=== PATIENT | female | born 2000 | race Caucasian/White ===

== ENCOUNTER 2022-11-16 16:16 | Emergency (ER) | payer MEDICAID ==
--- NOTE | 2022-11-16 17:05 | ERPHSYRPT ---
- History of Present Illness Historian: patient, other (Mother) Exam Limitations: no limitations Patient Subjective Stated Complaint: Abdominal pain Triage Nursing Assessment: Patient ambulated back to ED and transferred self to bed. Patient A+O x3. Patient's skin pink, warm and dry. Patient complains of lower abdominal pain 8/10 constant sharp pain for 2 days. Patient also complains of nausea and diarrhea. Abdomen soft and round with BS X 4. Physician History: 22 yo wf w supra-pubic pain x 2 days. Pain is described as "tightness" and 8/10. Sitting makes the pain better, shile standing makes it worse. She has had nausea and diarrhea wo vomiting. Dysuria/hematuria/increased frequency/melena/hematochezia are all denied. Timing/Duration: day(s) (2 days) Activities at Onset: other (Working at [employer]) Quality: other (Tightness) Abdominal Pain Onset Location: suprapubic Pain Radiation: no radiation Modifying Factors: Improves With: other (Worse w standing, better w sitting) Associated Symptoms: denies symptoms Previous symptoms: no prior history Allergies/Adverse Reactions: No Known Drug Allergies Allergy (Unverified 11/16/22 16:33) Hx Influenza Vaccination/Date Given: No Hx Pneumococcal Vaccination/Date Given: No Immunizations Up to Date: Yes Travel Risk - International Travel Have you traveled outside of the country in past 3 weeks: No - Coronavirus Screening Are you exhibiting any of the following symptoms?: No Close contact with a COVID-19 positive Pt in past 14-21 Days: No - Vaccine Status Have you recieved a Covid-19 vaccination: No - Review of Systems Constitutional: No Symptoms Eyes: No Symptoms Ears, Nose, & Throat: No Symptoms Respiratory: No Symptoms Cardiac: No Symptoms Abdominal/Gastrointestinal: Abdominal Pain Genitourinary Symptoms: No Symptoms Musculoskeletal: No Symptoms Skin: No Symptoms Neurological: No Symptoms Psychological: No Symptoms Endocrine: No Symptoms Hematologic/Lymphatic: No Symptoms Immunological/Allergic: No Symptoms - Past Medical History Pertinent Past Medical History: No Neurological History: No Pertinent History ENT History: No Pertinent History Cardiac History: No Pertinent History Respiratory History: No Pertinent History Endocrine Medical History: No Pertinent History Musculoskeletal History: No Pertinent History GI Medical History: No Pertinent History History: No Pertinent History Psycho-Social History: No Pertinent History Female Reproductive Disorders: No Pertinent History - Past Surgical History Past Surgical History: No Neuro Surgical History: No Pertinent History Cardiac: No Pertinent History Respiratory: No Pertinent History Gastrointestinal: No Pertinent History Genitourinary: No Pertinent History Musculoskeletal: No Pertinent History Female Surgical History: No Pertinent History - Social History Smoking Status: Never smoker Exposure to second hand smoke: Yes Drug Use: marijuana Patient Lives Alone: No - Female History Hx Last Menstrual Period: last month Hx Now: No - Nursing Vital Signs Nursing Vital Signs: Initial Vital Signs Temperature 97.4 F 11/16/22 16:33 Pulse Rate 86 11/16/22 16:33 Respiratory Rate 18 11/16/22 16:33 Blood Pressure 135/92 11/16/22 16:33 O2 Sat by Pulse Oximetry 99 11/16/22 16:33 Pain Scale Pain Intensity 5 Mildly hypertensive - Physical Exam General Appearance: no apparent distress Eye Exam: PERRL/EOMI, eyes nml inspection Ears, Nose, Throat Exam: normal ENT inspection, TMs normal, pharynx normal, moist mucous membranes Neck Exam: normal inspection, non-tender, supple, full range of motion, No meningismus, No mass, No Brudzinski, No Kernig's Respiratory Exam: normal breath sounds, lungs clear, airway intact Cardiovascular Exam: regular rate/rhythm, normal heart sounds, normal peripheral pulses, capillary refill <2 sec, No murmur Gastrointestinal/Abdomen Exam: soft, normal bowel sounds, tenderness (Mild supra-pubic TTP wo guarding or rebound) Back Exam: normal inspection, normal range of motion Extremity Exam: normal inspection, normal range of motion Neurologic Exam: alert, oriented x 3, cooperative, english as a second language instructor II-XII nml as tested, normal mood/affect, sensation nml, No motor deficits, No sensory deficit Skin Exam: normal color, warm, dry Lymphatic Exam: No adenopathy SpO2 Interpretation: normal SpO2: 99 O2 Delivery: Room Air - Course Nursing assessment & vital signs reviewed: Yes - CT Exams Abdomen/Pelvis CT Interpretation: Discussed w/radiologist (CT ab-pelvis wo-normal appy/nothing acute) Ordered Tests: Active Orders 24 hr Category Date Time Status IV Insertion STAT Care 11/16/22 17:14 Active ABDOMEN AND PELVIS W/0 CONTRAS [CT] Stat Exams 11/16/22 19:28 Taken AMYLASE Stat Lab 11/16/22 17:16 Completed CBC W DIFF Stat Lab 11/16/22 17:16 Completed CMP Stat Lab 11/16/22 17:16 Completed CULTURE,URINE Stat Lab 11/16/22 17:58 Received HCG QUALITATIVE,SERUM Stat Lab 11/16/22 17:16 Completed LIPASE Stat Lab 11/16/22 17:16 Completed UA W/RFX UR CULTURE Stat Lab 11/16/22 17:58 Completed Medication Summary Discontinued Medications Generic Name Dose Route Start Last Admin Trade Name Fide PRN Reason Stop Dose Admin Ceftriaxone Sodium/Dextrose 1 g in 50 mls @ 100 mls/hr 11/16/22 21:25 11/16/22 21:54 Rocephin 1 Gm-D5w 50 Ml Bag IV 11/16/22 21:54 100 ml/hr STAT STA 100 mls/hr Administration Ceftriaxone Sodium/Dextrose Confirm 11/16/22 21:38 Rocephin 1 Gm-D5w 50 Ml Bag Administered 11/16/22 21:39 Dose 1 g in 50 mls @ ud IV .STK-MED ONE Ketorolac Tromethamine 15 mg 11/16/22 19:30 11/16/22 19:32 Ketorolac Tromethamine 30 Mg/Ml Inj IV 11/16/22 19:31 15 mg STAT ONE Administration Ketorolac Tromethamine Confirm 11/16/22 19:30 Ketorolac Tromethamine 30 Mg/Ml Inj Administered 11/16/22 19:31 Dose 30 mg .ROUTE .STK-MED ONE Lab/Rad Data: Laboratory Result Diagrams 11/16/22 17:16 11/16/22 17:16 Laboratory Results 11/16/22 11/16/22 11/16/22 Range/Units 17:58 17:16 17:16 WBC (4.0-10.5) x10^3/uL RBC (4.1-5.4) x10^6/uL Hgb (12.0-16.0) g/dL Hct (35-47) % MCV (78-100) fL MCH (26-32) pg MCHC (32-36) g/dL RDW (11.5-14.0) % Plt Count (150-450) x10^3/uL MPV (7.5-11.0) fL Gran % (36.0-66.0) % Immature Gran % (Auto) (0.00-0.4) % Nucleat RBC Rel Count (0.00-0.1) % Eos # (Auto) (0-0.5) x10^3/uL Immature Gran # (Auto) (0.00-0.03) x10^3u/L Absolute Lymphs (auto) (1.0-4.6) x10^3/uL Absolute Monos (auto) (0.0-1.3) x10^3/uL Absolute Nucleated RBC (0.00-0.01) x10^3u/L Lymphocytes % (24.0-44.0) % Monocytes % (0.0-12.0) % Eosinophils % (0.00-5.0) % Basophils % (0.0-0.4) % Absolute Granulocytes (1.4-6.9) x10^3/uL Basophils # (0-0.4) x10^3/uL Sodium 137 (137-145) mmol/L Potassium 3.7 (3.5-5.1) mmol/L Chloride 105 (98-107) mmol/L Carbon Dioxide 23 (22-30) mmol/L Anion Gap 12.0 (5-15) MEQ/L BUN 12 (7-17) mg/dL Creatinine 0.77 (0.52-1.04) mg/dL Estimated GFR > 60.0 ML/MIN Glucose 104 (74-106) mg/dL Calcium 9.4 (8.4-10.2) mg/dL Total Bilirubin 0.60 (0.2-1.3) mg/dL AST 49 H (14-36) U/L ALT 19 (0-35) U/L Alkaline Phosphatase 100 (38-126) U/L Serum Total Protein 8.6 H (6.3-8.2) g/dL Albumin 5.0 (3.5-5.0) g/dL Amylase 61 (30-110) U/L Lipase 178 (23-300) U/L Serum , Qual NEGATIVE (Negative) Urine Color Yellow (Yellow) Urine Appearance Cloudy A (Clear) Urine pH 6.5 (4.6-8.0) Ur Specific [place] 1.020 (1.005-1.030) Urine Protein Negative (Negative) Urine Glucose (UA) Negative (Negative) mg/dL Urine Ketones 15 A (Negative) Urine Blood Negative (Negative) Urine Nitrite Negative (Negative) Urine Bilirubin Negative (Negative) Urine Urobilinogen 0.2 (0.2) mg/dL Ur Leukocyte Esterase Moderate A (Negative) U Hyaline Cast (Auto) NONE SEEN (0-2) /LPF Urine Microscopic RBC 0-2 (0-5) /HPF Urine Microscopic WBC 21-50 A (0-5) /HPF Ur Epithelial Cells Moderate A (None Seen) /HPF Urine Bacteria Few A (None Seen) /HPF Urine Culture Reflexed YES (NO) 11/16/22 Range/Units 17:16 WBC 14.0 H (4.0-10.5) x10^3/uL RBC 5.09 (4.1-5.4) x10^6/uL Hgb 15.0 (12.0-16.0) g/dL Hct 44.0 (35-47) % MCV 86.4 (78-100) fL MCH 29.5 (26-32) pg MCHC 34.1 (32-36) g/dL RDW 11.6 (11.5-14.0) % Plt Count 327 (150-450) x10^3/uL MPV 9.0 (7.5-11.0) fL Gran % 81.7 H (36.0-66.0) % Immature Gran % (Auto) 0.5 H (0.00-0.4) % Nucleat RBC Rel Count 0.0 (0.00-0.1) % Eos # (Auto) 0.07 (0-0.5) x10^3/uL Immature Gran # (Auto) 0.07 H (0.00-0.03) x10^3u/L Absolute Lymphs (auto) 1.66 (1.0-4.6) x10^3/uL Absolute Monos (auto) 0.72 (0.0-1.3) x10^3/uL Absolute Nucleated RBC 0.00 (0.00-0.01) x10^3u/L Lymphocytes % 11.9 L (24.0-44.0) % Monocytes % 5.2 (0.0-12.0) % Eosinophils % 0.5 (0.00-5.0) % Basophils % 0.2 (0.0-0.4) % Absolute Granulocytes 11.43 H (1.4-6.9) x10^3/uL Basophils # 0.03 (0-0.4) x10^3/uL Sodium (137-145) mmol/L Potassium (3.5-5.1) mmol/L Chloride (98-107) mmol/L Carbon Dioxide (22-30) mmol/L Anion Gap (5-15) MEQ/L BUN (7-17) mg/dL Creatinine (0.52-1.04) mg/dL Estimated GFR ML/MIN Glucose (74-106) mg/dL Calcium (8.4-10.2) mg/dL Total Bilirubin (0.2-1.3) mg/dL AST (14-36) U/L ALT (0-35) U/L Alkaline Phosphatase (38-126) U/L Serum Total Protein (6.3-8.2) g/dL Albumin (3.5-5.0) g/dL Amylase (30-110) U/L Lipase (23-300) U/L Serum , Qual (Negative) Urine Color (Yellow) Urine Appearance (Clear) Urine pH (4.6-8.0) Ur Specific [place] (1.005-1.030) Urine Protein (Negative) Urine Glucose (UA) (Negative) mg/dL Urine Ketones (Negative) Urine Blood (Negative) Urine Nitrite (Negative) Urine Bilirubin (Negative) Urine Urobilinogen (0.2) mg/dL Ur Leukocyte Esterase (Negative) U Hyaline Cast (Auto) (0-2) /LPF Urine Microscopic RBC (0-5) /HPF Urine Microscopic WBC (0-5) /HPF Ur Epithelial Cells (None Seen) /HPF Urine Bacteria (None Seen) /HPF Urine Culture Reflexed (NO) - Progress Progress: improved Progress Note: 11/16/22 21:26 Nursing note and vital signs reviewed All labs and CT result reviewed and shared w pt No food or housing insecurities noted Pain improved w 15mg IV Toradol 1gm IV Rocephin Counseled pt/family regarding: lab results, diagnosis, need for follow-up, rad results - Departure Departure Disposition: Home Clinical Impression: UTI (urinary tract infection) Condition: Stable Critical Care Time: No Referrals: RAMSAY,COURTNEY, HARDWARE TRAINER [Primary Care Provider] - Follow up/PCP as directed Instructions: Urinary Tract Infection, Adult (DC), Severe Abdominal Pain, Adult (DC) Additional Instructions: Follow up with your family MD in 1-2 days Fluids Start Bactrim in the morning Return to ER for increasing pain or temperature greater than 100.5 Prescriptions: Smz/Tmp Ds Tablet [Bactrim Ds Tablet] 1 tab PO Q12H 5 Days #10 tablet
[2022-11-16 17:47] LABS: Absolute Neutrophil Ct (ANC) 11.43 x10^3/uL (1.4-6.9); BASOPHIL % 0.2 % (0.0-0.4); Basophil (Absolute #) 0.03 x10^3/uL (0-0.4); Eosinophil % 0.5 % (0.00-5.0); Eosinophil (Absolute #) 0.07 x10^3/uL (0-0.5); IMMATURE GRAN # 0.07 x10^3u/L (0.00-0.03); IMMATURE GRAN % 0.5 % (0.00-0.4); Lymphocyte (Absolute #) 1.66 x10^3/uL (1.0-4.6); Lymphocytes % 11.9 % (24.0-44.0); Mean Cell Volume 86.4 fL (78-100); Mean Corpuscular Hemoglobin 29.5 pg (26-32); Mean Corpuscular Hgb Concent. 34.1 g/dL (32-36); Monocyte (Absolute #) 0.72 x10^3/uL (0.0-1.3); Monocytes % 5.2 % (0.0-12.0); Neutrophil % 81.7 % (36.0-66.0); Platelet Count 327 x10^3/uL (150-450); Red Blood Count 5.09 x10^6/uL (4.1-5.4); Red Cell Distribution Width 11.6 % (11.5-14.0)
[2022-11-16 18:00] LABS: ALKALINE PHOSPHATASE 100 U/L (38-126); AMYLASE 61 U/L (30-110); BLOOD UREA NITROGEN 12 mg/dL (7-17); CHLORIDE 105 mmol/L (98-107); Calcium 9.4 mg/dL (8.4-10.2); Carbon Dioxide 23 mmol/L (22-30); Creatinine 1 0.77 mg/dL (0.52-1.04); EST GLOMERULAR FILTRATION RATE > 60.0 ML/MIN; Glucose 104 mg/dL (74-106); LIPASE 178 U/L (23-300); Potassium 3.7 mmol/L (3.5-5.1); SGOT/AST 49 U/L (14-36); SGPT/ALT 19 U/L (0-35); SODIUM 137 mmol/L (137-145); Total Protein 8.6 g/dL (6.3-8.2)
[2022-11-16 18:27] LABS: Appearance Cloudy (Clear); Bacteria Few /HPF (None Seen); Bilirubin Negative (Negative); Blood Negative (Negative); Epithelial Cells Moderate /HPF (None Seen); Glucose, Urine Negative (Negative); Hyaline Casts NONE SEEN /LPF (0-2); Ketones 15 (Negative); Leukocyte Esterase Moderate (Negative); Nitrite Negative (Negative); Ph 6.5 (4.6-8.0); Protein,Urine Dip Negative (Negative); RBC 0-2 /HPF (0-5); Urobilinogen 0.2 mg/dL (0.2); WBC 21-50 /HPF (0-5)
[2022-11-16 19:21] LABS: ADD URINE CULTURE? YES (NO)
[2022-11-16] MEDS ORDERED: TORAdol 30 mg Injection IV ONE (19:30)
[2022-11-16] MEDS ORDERED: TORAdol 30 mg Injection ONE (19:30)
[2022-11-16 21:10] VITALS: O2SAT 99
[2022-11-16] MEDS ORDERED: ROCEPHIN 1 Gm-D5w 50 ml Bag** 1 G/50 ML IVPB IV STA (21:25)
[2022-11-16] MEDS ORDERED: ROCEPHIN 1 Gm-D5w 50 ml Bag** 1 G/50 ML IVPB IV ONE (21:38)
[2022-11-16 22:29] VITALS: BP 118/86; PULSE 77
--- NOTE | 2022-11-17 08:38 | XRAY ---
Indication: Pain, nausea, and diarrhea. Multiple contiguous axial images obtained through the abdomen and pelvis without contrast. Comparison: None Lung bases clear of infiltrate/infusion. Heart not enlarged. Noncontrasted stomach and bowel loops appear nonobstructed with normal appendix. Tiny cul-de-sac fluid presumed physiologic from rupture/leaking cyst. No free air. Remaining liver, gallbladder, pancreas, spleen, adrenal glands, kidneys, ureters, bladder, uterus, and aorta are unremarkable for noncontrast exam. Osseous structures intact. No ventral or inguinal hernias. Impression: 1. Tiny physiologic cul-de-sac fluid. 2. Remaining CT abdomen/pelvis without contrast exam is negative.
== END 2022-11-16 22:35 | disposition home or self-care (01) ==
LOC: ED 16:16
DX: N39.0 Urinary tract infection, site not specified (principal); R10.2 Pelvic and perineal pain; R11.0 Nausea; R19.7 Diarrhea, unspecified; Z28.310 Unvaccinated for COVID-19
CPT/HCPCS: 36000; 36415; 74176; 80053; 81001; 82150; 83690; 84703; 85025; 87086; 96365; 96374; 99284; J0696; J1885

== ENCOUNTER 2024-04-24 09:02 | Emergency (ER) | payer MEDICAID ==
[2024-04-24 09:33] VITALS: TEMP 97
[2024-04-24] MEDS ORDERED: Zofran 4 MG/2 ML VIAL ONE (09:36)
[2024-04-24] MEDS ORDERED: TORAdol 30 mg Injection ONE (09:36)
[2024-04-24] MEDS ORDERED: Sodium Chloride 0.9% 1000 ML 1,000 ML ONE (09:37)
[2024-04-24] MEDS ORDERED: MORPHINE SULFATE 2 MG INJ ONE (09:37)
[2024-04-24] MEDS: Sodium Chloride 0.9% 1000 ML 1,000 ML IV STA (09:43)
[2024-04-24] MEDS: MORPHINE SULFATE 2 MG INJ IV ONE (09:43)
[2024-04-24] MEDS: Zofran 4 MG/2 ML VIAL IV ONE (09:45)
[2024-04-24] MEDS: TORAdol 30 mg Injection IV ONE (09:45)
--- NOTE | 2024-04-24 09:54 | ERPHSYRPT ---
- History of Present Illness Time Seen by Provider: 04/24/24 09:35 Historian: patient, family Exam Limitations: no limitations Patient Subjective Stated Complaint: pt here for lower back pain that radiates down legs, chills and nausea Triage Nursing Assessment: pt alert, resp easy, skin w/d/p. walked in, moves all ext well, abd soft Physician History: This is a 23-year-old white female patient of nurse practitioner Sonido who presents with bilateral flank and lower back pain that began last evening. She has associated chills and nausea without vomiting. She has had no diarrhea symptoms. She denies headache. She denies neck pain. She denies light sensitivity. She has no abdominal pain. She denies chest pain and she denies shortness of breath. She does not have a cough. She has no known exposure to individuals with similar symptoms that she is having. She has no known drug allergies and she takes no medications chronically. Timing/Duration: yesterday Activities at Onset: none Quality: sharpness Abdominal Pain Onset Location: flank (Bilateral flank and bilateral lower back) Pain Radiation: flank (Bilateral), back (Bilateral) Severity of Pain-Max: moderate Severity of Pain-Current: moderate Modifying Factors: Improves With: other (Nausea) Associated Symptoms: back, fever/chills, loss of appetite, nausea, No chest pain, No headache, No neck pain, No shortness of breath, No vomiting Previous symptoms: no prior history, no recent treatment Allergies/Adverse Reactions: No Known Drug Allergies Allergy (Verified 04/24/24 09:10) Hx Tetanus, Diphtheria Vaccination/Date Given: No Hx Influenza Vaccination/Date Given: No Hx Pneumococcal Vaccination/Date Given: No Immunizations Up to Date: Yes Travel Risk - International Travel Have you traveled outside of the country in past 3 weeks: No - Emerging Infectious Disease Are you exhibiting symptoms associated with any current EIDs: No Symptoms: Fever (Subjective at home), Headaches/Body Aches/ - Review of Systems Constitutional: No Symptoms Eyes: No Symptoms Ears, Nose, & Throat: No Symptoms Respiratory: No Symptoms Cardiac: No Symptoms Abdominal/Gastrointestinal: No Symptoms Genitourinary Symptoms: No Symptoms Musculoskeletal: No Symptoms Skin: No Symptoms Neurological: No Symptoms Psychological: No Symptoms Endocrine: No Symptoms Hematologic/Lymphatic: No Symptoms Immunological/Allergic: No Symptoms All Other Systems: Reviewed and Negative - Past Medical History Pertinent Past Medical History: No Neurological History: No Pertinent History ENT History: No Pertinent History Cardiac History: No Pertinent History Respiratory History: No Pertinent History Endocrine Medical History: No Pertinent History Musculoskeletal History: No Pertinent History GI Medical History: No Pertinent History History: No Pertinent History Psycho-Social History: No Pertinent History Female Reproductive Disorders: No Pertinent History - Past Surgical History Past Surgical History: Yes Neuro Surgical History: No Pertinent History Cardiac: No Pertinent History Respiratory: No Pertinent History Gastrointestinal: No Pertinent History Genitourinary: No Pertinent History Musculoskeletal: No Pertinent History Female Surgical History: No Pertinent History - Female History Hx Last Menstrual Period: last month Hx Now: No - Social History Smoking Status: Never smoker Exposure to second hand smoke: No Drug Use: none Patient Lives Alone: No - Social Determinants of Health Will the patient participate in the screening: Yes Do you worry about a steady place to live?: No Do you have any problems with any of the following?: No known problems In the past 12 months,have you had to go without utilities?: No Transportation Issues: No Has anyone in your support network made you feel unsafe?: No Have you or anyone in your house had to go without enough: No - Nursing Vital Signs Nursing Vital Signs: Initial Vital Signs Pulse Rate 122 H 04/24/24 09:11 Respiratory Rate 26 H 04/24/24 09:11 Blood Pressure 123/75 04/24/24 09:11 O2 Sat by Pulse Oximetry 100 04/24/24 09:11 Pain Scale Pain Intensity [Back] 8 Pain Intensity 4 - Physical Exam General Appearance: no apparent distress, alert Eye Exam: PERRL/EOMI, eyes nml inspection Ears, Nose, Throat Exam: normal ENT inspection, moist mucous membranes Neck Exam: normal inspection, non-tender, supple, full range of motion Respiratory Exam: normal breath sounds, lungs clear, No chest tenderness, No respiratory distress Cardiovascular Exam: regular rate/rhythm, normal heart sounds, normal peripheral pulses Gastrointestinal/Abdomen Exam: soft, normal bowel sounds, No tenderness Pelvic Exam: not done Rectal Exam: not done Back Exam: normal inspection, normal range of motion (Mild bilateral), CVA tenderness, No vertebral tenderness Extremity Exam: normal inspection, normal range of motion, pelvis stable Neurologic Exam: alert, oriented x 3, cooperative, 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 as tested, normal mood/affect, nml cerebellar function, nml station & gait, sensation nml Skin Exam: normal color, warm, dry Lymphatic Exam: No adenopathy SpO2 Interpretation: normal SpO2: 98 O2 Delivery: Room Air - Course Nursing assessment & vital signs reviewed: Yes Ordered Tests: Active Orders 24 hr Category Date Time Status IV Insertion STAT Care 04/24/24 09:30 Active ABDOMEN AND PELVIS W/0 CONTRAS [CT] Stat Exams 04/24/24 09:31 Completed AMYLASE Stat Lab 04/24/24 09:00 Completed CBC W DIFF Stat Lab 04/24/24 09:00 Completed CMP Stat Lab 04/24/24 09:00 Completed HCG QUALITATIVE, SERUM Stat Lab 04/24/24 09:00 Completed LIPASE Stat Lab 04/24/24 09:00 Completed UA W/RFX UR CULTURE Stat Lab 04/24/24 11:10 Completed Medication Summary Discontinued Medications Generic Name Dose Route Start Last Admin Trade Name Freq PRN Reason Stop Dose Admin Sodium Chloride 1,000 mls @ 999 mls/hr 04/24/24 09:30 04/24/24 10:53 Sodium Chloride 0.9% 1000 Ml IV 04/24/24 10:30 Infused .Q1H1M STA Infusion Sodium Chloride Confirm 04/24/24 09:37 Sodium Chloride 0.9% 1000 Ml Administered 04/24/24 09:38 Dose 1,000 mls @ ud .ROUTE .STK-MED ONE Ketorolac Tromethamine 30 mg 04/24/24 09:30 04/24/24 09:45 Ketorolac Tromethamine 30 Mg/Ml Inj IV 04/24/24 09:31 30 mg STAT ONE Administration Ketorolac Tromethamine Confirm 04/24/24 09:36 Ketorolac Tromethamine 30 Mg/Ml Inj Administered 04/24/24 09:37 Dose 30 mg .ROUTE .STK-MED ONE Morphine Sulfate 2 mg 04/24/24 09:30 04/24/24 09:43 Morphine Sulfate 2 Mg/Ml Inj IV 04/24/24 09:31 2 mg STAT ONE Administration Morphine Sulfate Confirm 04/24/24 09:37 Morphine Sulfate 2 Mg/Ml Inj Administered 04/24/24 09:38 Dose 2 mg .ROUTE .STK-MED ONE Ondansetron HCl 4 mg 04/24/24 09:30 04/24/24 09:45 Ondansetron Hcl 4 Mg/2 Ml Vial IV 04/24/24 09:31 4 mg STAT ONE Administration Ondansetron HCl Confirm 04/24/24 09:36 Ondansetron Hcl 4 Mg/2 Ml Vial Administered 04/24/24 09:37 Dose 4 mg .ROUTE .STK-MED ONE Lab/Rad Data: Laboratory Result Diagrams 04/24/24 09:00 04/24/24 09:00 Laboratory Results 04/24/24 04/24/24 04/24/24 Range/Units 11:10 09:58 09:00 WBC (3.98-10.04) x10^3/uL RBC (3.93-5.22) x10^6/uL Hgb (11.2-15.7) g/dL Hct (34.1-44.9) % MCV (79.4-94.8) fL MCH (25.6-32.2) pg MCHC (32.2-35.5) g/dL RDW (11.7-14.4) % Plt Count (182-369) x10^3/uL MPV (9.4-12.3) fL Gran % (34.0-71.1) % Immature Gran % (Auto) (0.001-0.429) % Nucleat RBC Rel Count (0.00-0.2) % Eos # (Auto) (0.04-0.36) x10^3/uL Immature Gran # (Auto) (0.001-0.031) x10^3u/L Absolute Lymphs (auto) (1.18-3.74) x10^3/uL Absolute Monos (auto) (0.24-0.86) x10^3/uL Absolute Nucleated RBC (0.00-0.012) x10^3u/L Lymphocytes % (19.3-51.7) % Monocytes % (4.7-12.5) % Eosinophils % (0.7-5.8) % Basophils % (0.1-1.2) % Absolute Granulocytes (1.56-6.13) x10^3/uL Basophils # (0.01-0.08) x10^3/uL Sodium (135-145) mmol/L Potassium (3.5-5.1) mmol/L Chloride (98-107) mmol/L Carbon Dioxide (22-30) mmol/L Anion Gap (5-15) MEQ/L BUN (7-17) mg/dL Creatinine (0.52-1.04) mg/dL Estimated GFR ML/MIN Glucose (74-106) mg/dL Calcium (8.4-10.2) mg/dL Total Bilirubin (0.2-1.3) mg/dL AST (14-36) U/L ALT (0-35) U/L Alkaline Phosphatase (38-126) U/L Serum Total Protein (6.3-8.2) g/dL Albumin (3.5-5.0) g/dL Amylase (30-110) U/L Lipase (23-300) U/L Serum HCG, Qual NEGATIVE (NEGATIVE) Urine Color Yellow (Yellow) Urine Appearance Clear (Clear) Urine pH 8.0 (4.6-8.0) Ur Specific [place] <=1.005 (1.005-1.030) Urine Protein Negative (Negative) Urine Glucose (UA) Negative (Negative) mg/dL Urine Ketones Negative (Negative) Urine Blood Negative (Negative) Urine Nitrite Negative (Negative) Urine Bilirubin Negative (Negative) Urine Urobilinogen 0.2 (0.2) mg/dL Ur Leukocyte Esterase Trace A (Negative) U Hyaline Cast (Auto) NONE SEEN (0-2) /LPF Urine Microscopic RBC 0-2 (0-5) /HPF Urine Microscopic WBC 0-2 (0-5) /HPF Ur Epithelial Cells Rare (None Seen) /HPF Urine Bacteria None Seen (None Seen) /HPF Urine Culture Reflexed NO (NO) Influenza Type A Ag NEGATIVE (NEGATIVE) Influenza Type B Ag NEGATIVE (NEGATIVE) RSV (PCR) NEGATIVE (NEGATIVE) SARS-CoV-2 (PCR) POSITIVE A (NEGATIVE) Slides for Path Review 04/24/24 04/24/24 Range/Units 09:00 09:00 WBC 8.1 (3.98-10.04) x10^3/uL RBC 4.45 (3.93-5.22) x10^6/uL Hgb 13.0 (11.2-15.7) g/dL Hct 37.0 (34.1-44.9) % MCV 83.1 (79.4-94.8) fL MCH 29.2 (25.6-32.2) pg MCHC 35.1 (32.2-35.5) g/dL RDW 11.9 (11.7-14.4) % Plt Count 251 (182-369) x10^3/uL MPV 8.8 L (9.4-12.3) fL Gran % 86.3 H (34.0-71.1) % Immature Gran % (Auto) 0.5 H (0.001-0.429) % Nucleat RBC Rel Count 0.0 (0.00-0.2) % Eos # (Auto) 0.09 (0.04-0.36) x10^3/uL Immature Gran # (Auto) 0.04 H (0.001-0.031) x10^3u/L Absolute Lymphs (auto) 0.34 L (1.18-3.74) x10^3/uL Absolute Monos (auto) 0.61 (0.24-0.86) x10^3/uL Absolute Nucleated RBC 0.00 (0.00-0.012) x10^3u/L Lymphocytes % 4.2 L (19.3-51.7) % Monocytes % 7.5 (4.7-12.5) % Eosinophils % 1.1 (0.7-5.8) % Basophils % 0.4 (0.1-1.2) % Absolute Granulocytes 7.02 H (1.56-6.13) x10^3/uL Basophils # 0.03 (0.01-0.08) x10^3/uL Sodium 135 (135-145) mmol/L Potassium 4.2 (3.5-5.1) mmol/L Chloride 105 (98-107) mmol/L Carbon Dioxide 21 L (22-30) mmol/L Anion Gap 12.9 (5-15) MEQ/L BUN 10 (7-17) mg/dL Creatinine 0.81 (0.52-1.04) mg/dL Estimated GFR 105.2 ML/MIN Glucose 142 H (74-106) mg/dL Calcium 9.4 (8.4-10.2) mg/dL Total Bilirubin 0.90 (0.2-1.3) mg/dL AST 34 (14-36) U/L ALT 22 (0-35) U/L Alkaline Phosphatase 65 (38-126) U/L Serum Total Protein 7.9 (6.3-8.2) g/dL Albumin 4.4 (3.5-5.0) g/dL Amylase 65 (30-110) U/L Lipase 135 (23-300) U/L Serum HCG, Qual (NEGATIVE) Urine Color (Yellow) Urine Appearance (Clear) Urine pH (4.6-8.0) Ur Specific [place] (1.005-1.030) Urine Protein (Negative) Urine Glucose (UA) (Negative) mg/dL Urine Ketones (Negative) Urine Blood (Negative) Urine Nitrite (Negative) Urine Bilirubin (Negative) Urine Urobilinogen (0.2) mg/dL Ur Leukocyte Esterase (Negative) U Hyaline Cast (Auto) (0-2) /LPF Urine Microscopic RBC (0-5) /HPF Urine Microscopic WBC (0-5) /HPF Ur Epithelial Cells (None Seen) /HPF Urine Bacteria (None Seen) /HPF Urine Culture Reflexed (NO) Influenza Type A Ag (NEGATIVE) Influenza Type B Ag (NEGATIVE) RSV (PCR) (NEGATIVE) SARS-CoV-2 (PCR) (NEGATIVE) Slides for Path Review YES - Progress Progress: improved, pain not gone completely, re-examined Progress Note: 04/24/24 09:56 My medical decision making and the assignment of moderate complexity to this patient's medical issue today is based on review of the patient's past medical history, review the patient's medication list, review of patient drug allergy list, history present illness and physical findings on examination. The workup in this patient includes placement of intravenous line, infusion of normal saline solution, infusion of Toradol, infusion of morphine, infusion of Zofran, urinalysis, serum hCG, CBC, CMP, amylase, lipase, CT scan of the abdomen pelvis without contrast. The differential diagnosis includes but is not limited to pancreatitis, pyelonephritis, urinary tract infection, ureterolithiasis, back muscle skeletal pain 04/24/24 11:36 I interpreted the patient's laboratory data results. The patient is positive for COVID-19 infection. There are no other acute, emergent findings. CT scan of the abdomen pelvis was interpreted by the radiologist and I reviewed the impression. The impression is negative renal calculi. Negative obstructive uropathy. Tiny physiologic cul-de-sac fluid. No new or acute findings. Counseled pt/family regarding: lab results, diagnosis, rad results Medical Desision Making - Independent Historian Additional History obtained from: Mother - Diagnostic Testing Diagnostic test were ordered, analyzed, and reviewed by me: Yes Radiological Interpretation: Reviewed by me, Teleradiologist Report - Risk of complications Minimal Risk: Minimal risk of morbidity - Departure Departure Disposition: Home Clinical Impression: COVID-19 virus infection Condition: Stable Critical Care Time: No Referrals: COURTNEY RAMSAY NP [Primary Care Provider] - Follow up/PCP as directed Additional Instructions: Drink plenty of clear liquids. Use Tylenol and ibuprofen for pain and fever control. Avoid exposure to other individuals for at least 7 to 10 days. Prescriptions: Ondansetron ODT 4 MG [Zofran Odt 4 mg] 4 mg PO Q6H PRN PRN #10 tablet PRN Reason: Vomiting
[2024-04-24 09:57] LABS: Absolute Neutrophil Ct (ANC) 7.02 x10^3/uL (1.56-6.13); BASOPHIL % 0.4 % (0.1-1.2); Basophil (Absolute #) 0.03 x10^3/uL (0.01-0.08); Eosinophil % 1.1 % (0.7-5.8); Eosinophil (Absolute #) 0.09 x10^3/uL (0.04-0.36); IMMATURE GRAN # 0.04 x10^3u/L (0.001-0.031); IMMATURE GRAN % 0.5 % (0.001-0.429); Lymphocyte (Absolute #) 0.34 x10^3/uL (1.18-3.74); Lymphocytes % 4.2 % (19.3-51.7); Mean Cell Volume 83.1 fL (79.4-94.8); Mean Corpuscular Hemoglobin 29.2 pg (25.6-32.2); Mean Corpuscular Hgb Concent. 35.1 g/dL (32.2-35.5); Mean Platelet Volume 8.8 fL (9.4-12.3); Monocyte (Absolute #) 0.61 x10^3/uL (0.24-0.86); Monocytes % 7.5 % (4.7-12.5); Neutrophil % 86.3 % (34.0-71.1); Platelet Count 251 x10^3/uL (182-369); Red Blood Count 4.45 x10^6/uL (3.93-5.22); Red Cell Distribution Width 11.9 % (11.7-14.4); White Blood Count 8.1 x10^3/uL (3.98-10.04)
[2024-04-24 10:11] LABS: ALBUMIN 4.4 g/dL (3.5-5.0); ANION GAP 12.9 MEQ/L (5-15); BILIRUBIN,TOTAL 0.9 mg/dL (0.2-1.3); Calcium 9.4 mg/dL (8.4-10.2); Creatinine 1 0.81 mg/dL (0.52-1.04); EST GLOMERULAR FILTRATION RATE 105.2 ML/MIN; Potassium 4.2 mmol/L (3.5-5.1); Total Protein 7.9 g/dL (6.3-8.2)
[2024-04-24 10:13] LABS: HCG SERUM TEST NEGATIVE (NEGATIVE)
[2024-04-24 10:19] LABS: Slide Review 1 YES
--- NOTE | 2024-04-24 11:04 | XRAY ---
Indication: Flank pain. Chills. Multiple contiguous axial images obtained through the abdomen and pelvis without contrast using renal stone protocol. Comparison: November 16, 2022 Lung bases remain clear. Heart not enlarged. No renal calculus or evidence for obstructive uropathy in either system. Noncontrasted stomach and bowel loops appear nonobstructed again with normal appendix. Again tiny cul-de-sac fluid presumed physiologic from rupture/leaking cyst. No free air. Remaining liver, gallbladder, pancreas, spleen, adrenal glands, kidneys, ureters, bladder, uterus, and aorta are unremarkable for noncontrast exam. Osseous structures intact. Impression: Continued negative renal calculus or evidence for obstructive uropathy. Again tiny physiologic cul-de-sac fluid. No new/acute findings on this noncontrast exam.
[2024-04-24 11:09] LABS: INFLUENZA A NEGATIVE (NEGATIVE); INFLUENZA B NEGATIVE (NEGATIVE); RESPIRATORY SYNCTIAL VIRUS NEGATIVE (NEGATIVE)
[2024-04-24 11:10] LABS: SARS-CoV-2 Xpert Express POSITIVE (NEGATIVE)
[2024-04-24 11:25] LABS: Appearance Clear (Clear); Bacteria None Seen /HPF (None Seen); Bilirubin Negative (Negative); Blood Negative (Negative); Epithelial Cells Rare /HPF (None Seen); Glucose, Urine Negative (Negative); Hyaline Casts NONE SEEN /LPF (0-2); Ketones Negative (Negative); Leukocyte Esterase Trace (Negative); Nitrite Negative (Negative); Protein,Urine Dip Negative (Negative); RBC 0-2 /HPF (0-5); Specific Gravity <=1.005 (1.005-1.030); Urobilinogen 0.2 mg/dL (0.2); WBC 0-2 /HPF (0-5)
[2024-04-24 11:27] LABS: ADD URINE CULTURE? NO (NO)
[2024-04-24 11:40] VITALS: O2SAT 98
[2024-04-24 11:47] VITALS: BP 111/64; PULSE 119; RESP 22
== END 2024-04-24 11:57 | disposition home or self-care (01) ==
LOC: ED 09:02
DX: U07.1 COVID-19 (principal); R10.9 Unspecified abdominal pain; M54.50 Low back pain, unspecified; R11.0 Nausea
CPT/HCPCS: 0241U; 36000; 36415; 74176; 80053; 81001; 82150; 83690; 84703; 85025; 96374; 96375; 99284; J1885; J2270; J2405